=== PATIENT | male | born 1960 | race Caucasian/White ===

== ENCOUNTER 2024-06-12 06:39 | Day surgery (SDC) | payer BC ==
[2024-06-11 13:58] VITALS: BMI 31.3
[~2024-06-12 06:39] MED LIST: Fluorouracil 100 MG, Enoxaparin 25 MG, EPINEPHrine 0.3 MG in Ophthalmic Irrigation Solu... IRR SCH
[2024-06-12] MEDS ORDERED: Cyclopentolate 1% Opth Drop 2 ML BOT ONE (07:42)
[2024-06-12] MEDS ORDERED: PHENYLephrine 2.5% Ophth Soln 15 ml Bottle ONE (07:42)
[2024-06-12] MEDS ORDERED: fentaNYL 50 mcg/mL 1 mL Vial ONE (08:23)
[2024-06-12] MEDS ORDERED: Lidocaine 1% PF 5 ML VIAL ONE ×2 (08:23→09:08)
[2024-06-12] MEDS ORDERED: Midazolam HCl 2 mg/2 ml Vial ONE (08:23)
[2024-06-12] MEDS ORDERED: PROPOFOL 20 ML ONE (08:23)
[2024-06-12] MEDS ORDERED: CEFAZOLIN 1 GM VIAL ONE (09:08)
[2024-06-12] MEDS ORDERED: Bupivacaine 0.75% 10 ML VIAL ONE (09:08)
[2024-06-12] MEDS ORDERED: Maxitrol 0.1% Opth Oint 3.5 GM TUBE ONE (09:08)
[2024-06-12] MEDS ORDERED: Lidocaine 4% PF 5 ML AMP ONE (09:08)
[2024-06-12] MEDS ORDERED: Triamcinolone 40 MG/ML VIAL ONE (09:08)
[2024-06-12] MEDS ORDERED: Ondansetron PF 4 MG/2 ML Vial ONE (09:09)
== END 2024-06-12 10:50 | disposition home or self-care (01) ==
LOC: SDC 06:39
PROVIDERS: ATTEND Ophthalmology Retina Specialist
PROC: 08T43ZZ Resection of Right Vitreous, Percutaneous Approach (ICD-10-PCS; principal; 2024-06-12)
DX: H33.021 Retinal detachment with multiple breaks, right eye (principal); E78.5 Hyperlipidemia, unspecified; G47.33 Obstructive sleep apnea (adult) (pediatric); Z95.1 Presence of aortocoronary bypass graft; Z88.2 Allergy status to sulfonamides; Z91.018 Allergy to other foods; Z79.82 Long term (current) use of aspirin
CPT/HCPCS: 67025; J0171; J0690; J1650; J2250; J2405; J2704; J3010; J3301; J3490; J9190